=== PATIENT | female | born 1990 | race Caucasian/White ===

== ENCOUNTER 2016-08-25 23:25 | Emergency (ER) | payer SELFPAY ==
[~2016-08-25] VITALS: Ht 170.2 cm; Wt 82.0 kg
[~2016-08-25 23:25] MED LIST: BENTYL20 MG PO; CARAFATE100 MG/ML PO; NAPROSYN500 MG PO; PROTONIX40 MG PO; ZANTAC150 MG PO; ZOFRAN ODT4 MG PO; ZOFRAN4 MG PO
[2016-08-25 23:54] LABS: HEMATOCRIT 39.8 % (36.0-46.0); MCH 29.9 PG (29.0-34.0); MCHC 33.9 G/DL (30.0-36.0); MCV 88.1 FL (83-99); MEAN PLAT.VOLUME 12.5 uM^3 (9.5-12.4); PLATELET COUNT 175 K/uL (156-360); RBC DIS.WIDTH-CV 12.2 % (11.8-14.6); RBC DIS.WIDTH-SD 38.8 % (39-53); RED BLOOD COUNT 4.52 M/uL (3.80-5.20); WHITE BLOOD COUNT 8.8 K/uL (4.1-10.2)
[2016-08-26 00:02] LABS: CHLORIDE 109 mEq/L (99-109); SODIUM 142 mEq/L (136-147)
[2016-08-26 00:04] LABS: GLUCOSE 79 mg/dL (70-99)
[2016-08-26 00:06] LABS: ANION GAP 9 MEQ/L (2-14)
[2016-08-26 00:08] LABS: GFR ESTIMATE (CALCULATED) > 59 mL/min/
[2016-08-26 00:09] LABS: UREA NITROGEN (BUN) 8 mg/dL (9-23)
[2016-08-26] MEDS ORDERED: HYCODAN SYRUP480 ML PO (00:40)
[2016-08-26 01:37] LABS: INFLUENZA A VIRAL ANTIGEN NEGATIVE; INFLUENZA B VIRAL ANTIGEN NEGATIVE
[2016-08-26 02:03] VITALS: BP 114/68
== END 2016-08-26 02:04 | disposition home or self-care (01) ==
LOC: EME 23:25 → EXP 23:25
PROVIDERS: Emergency Medicine
DX: J06.9 Acute upper respiratory infection, unspecified (principal); S90.111A Contusion of right great toe without damage to nail, initial encounter; W22.8XXA Striking against or struck by other objects, initial encounter; Z79.3 Long term (current) use of hormonal contraceptives; Z88.1 Allergy status to other antibiotic agents
CPT/HCPCS: 71020; 73630; 80048; 85027; 87502; 87651 90; 99281; 99284

== ENCOUNTER 2016-08-31 19:36 | Emergency (ER) | payer SELFPAY ==
[~2016-08-31] VITALS: Ht 170.2 cm; Wt 82.1 kg
[~2016-08-31 19:36] MED LIST changes: +HYCODAN SYRUP480 ML PO
[2016-08-31] MEDS ORDERED: HYCODAN SYRUP480 ML PO (22:40)
[2016-08-31 22:48] VITALS: BP 96/78
== END 2016-08-31 22:48 | disposition home or self-care (01) ==
LOC: EXP 19:36 → EME 19:36 → EXP 22:48
DX: J06.9 Acute upper respiratory infection, unspecified (principal)
CPT/HCPCS: 71020; 99281; 99284

== ENCOUNTER 2016-09-11 17:46 | Emergency (ER) | payer SELFPAY ==
[~2016-09-11] VITALS: Ht 170.2 cm; Wt 82.2 kg
[2016-09-11 18:52] LABS: HEMATOCRIT 43.2 % (36.0-46.0); MCH 30.3 PG (29.0-34.0); MCHC 34.3 G/DL (30.0-36.0); MCV 88.3 FL (83-99); MEAN PLAT.VOLUME 12.5 uM^3 (9.5-12.4); PLATELET COUNT 210 K/uL (156-360); RBC DIS.WIDTH-CV 12.4 % (11.8-14.6); RBC DIS.WIDTH-SD 39.6 % (39-53); RED BLOOD COUNT 4.89 M/uL (3.80-5.20); WHITE BLOOD COUNT 9.3 K/uL (4.1-10.2)
[2016-09-11 19:10] LABS: CHLORIDE 106 mEq/L (99-109); POTASSIUM 4.4 mEq/L (3.7-5.4); SODIUM 141 mEq/L (136-147)
[2016-09-11 19:12] LABS: GLUCOSE 92 mg/dL (70-99)
[2016-09-11 19:13] LABS: ANION GAP 7 MEQ/L (2-14)
[2016-09-11 19:15] LABS: GFR ESTIMATE (CALCULATED) > 59 mL/min/
[2016-09-11 19:16] LABS: UREA NITROGEN (BUN) 10 mg/dL (9-23)
[2016-09-11 19:20] LABS: TROP-I INTERPRETATION NEGATIVE; TROPONIN-I < 0.01 ng/mL (0.0-0.30)
[2016-09-11 21:17] LABS: ADD MIUA? YES; BILIRUBIN NEGATIVE; BLOOD NEGATIVE; COLOR YELLOW ((YELLOW)); GLUCOSE (STRIP) NEGATIVE; KETONES NEGATIVE; LEUKOCYTES NEGATIVE; NITRITE NEGATIVE; PROTEIN (STRIP) NEGATIVE; SPECIFIC GRAVITY 1.013 (1.000-1.030); UROBILINOGEN 0.2 MG/DL (0.2-1.0)
[2016-09-11 21:18] LABS: UCUL ADDED? NO
[2016-09-11 21:19] LABS: BACTERIA NONE SEEN /HPF; CASTS NONE SEEN /LPF; CRYSTALS NONE SEEN; EPITHELIAL CELLS RARE /HPF; MUCUS NONE SEEN /LPF; RED BLOOD CELLS 0-5 /HPF (0-5); WHITE BLOOD CELLS 0-5 /HPF (0-5)
[2016-09-11 21:35] LABS: D-DIMER ELISA < 0.15 mg/L FEU (< 0.57)
[2016-09-11 22:32] VITALS: BP 111/74
== END 2016-09-11 22:33 | disposition home or self-care (01) ==
LOC: EME 17:46
PROVIDERS: Emergency Medicine
DX: M94.0 Chondrocostal junction syndrome [Tietze] (principal); Z87.891 Personal history of nicotine dependence
CPT/HCPCS: 71020; 80048; 81003; 84484; 85027; 85379; 93005; 99281; 99284

== ENCOUNTER 2016-10-07 23:16 | Emergency (ER) | payer SELFPAY ==
[~2016-10-07] VITALS: Ht 170.2 cm; Wt 83.4 kg
[2016-10-07] MEDS ORDERED: FLEXERIL10 MG PO (23:59)
[2016-10-07] MEDS ORDERED: MOBIC7.5 MG PO (23:59)
[2016-10-07] MEDS ORDERED: ULTRAM50 MG PO (23:59)
[2016-10-08 00:03] VITALS: BP 106/70
== END 2016-10-08 00:07 | disposition home or self-care (01) ==
LOC: EME 23:16 → EXP 23:16
DX: M54.2 Cervicalgia (principal); R51 Headache
CPT/HCPCS: 99281; 99284

== ENCOUNTER 2016-10-20 17:21 | Emergency (ER) | payer SELFPAY ==
[~2016-10-20] VITALS: Ht 170.2 cm; Wt 83.7 kg
[~2016-10-20 17:21] MED LIST changes: +FLEXERIL10 MG PO; +MOBIC7.5 MG PO; +ULTRAM50 MG PO
[2016-10-20] MEDS ORDERED: VOLTAREN75 MG PO (20:11)
[2016-10-20] MEDS ORDERED: MEDROL DOSEPAK4 MG PO (20:11)
[2016-10-20] MEDS ORDERED: ROBAXIN750 MG PO (20:11)
[2016-10-20 20:37] VITALS: BP 120/75
== END 2016-10-20 20:37 | disposition home or self-care (01) ==
LOC: EME 17:21
DX: G89.29 Other chronic pain (principal); M25.512 Pain in left shoulder; M79.602 Pain in left arm; R20.0 Anesthesia of skin
CPT/HCPCS: 72040; 73030; 99281; 99283

== ENCOUNTER 2016-11-25 13:35 | Emergency (ER) | payer OTHER ==
[~2016-11-25] VITALS: Ht 170.2 cm; Wt 81.7 kg
[~2016-11-25 13:35] MED LIST changes: +MEDROL DOSEPAK4 MG PO; +ROBAXIN750 MG PO; +VOLTAREN75 MG PO
[2016-11-25 14:16] LABS: ADD MIUA? YES; BILIRUBIN NEGATIVE; BLOOD NEGATIVE; COLOR YELLOW ((YELLOW)); GLUCOSE (STRIP) NEGATIVE; KETONES NEGATIVE; LEUKOCYTES TRACE; NITRITE NEGATIVE; PROTEIN (STRIP) 30; UROBILINOGEN 0.2 MG/DL (0.2-1.0)
[2016-11-25 14:19] LABS: BACTERIA NONE SEEN /HPF; EPITHELIAL CELLS 1+ /HPF; HYALINE CASTS 0-5 /LPF; MUCUS TRACE /LPF; RED BLOOD CELLS 0-5 /HPF (0-5); WHITE BLOOD CELLS 0-5 /HPF (0-5)
[2016-11-25 14:33] LABS: CHLORIDE 106 mEq/L (99-109); POTASSIUM 3.8 mEq/L (3.7-5.4); SODIUM 138 mEq/L (136-147)
[2016-11-25 14:35] LABS: GLUCOSE 95 mg/dL (70-99)
[2016-11-25 14:37] LABS: ANION GAP 9 MEQ/L (2-14)
[2016-11-25 14:39] LABS: GFR ESTIMATE (CALCULATED) > 59 mL/min/
[2016-11-25 14:40] LABS: UREA NITROGEN (BUN) 10 mg/dL (9-23)
[2016-11-25 14:47] LABS: QUANTITATIVE HCG < 4.0 MIU/ML
[2016-11-25] MEDS ORDERED: ZOFRAN ODT8 MG PO (14:53)
[2016-11-25 14:58] VITALS: BP 110/72
== END 2016-11-25 15:19 | disposition home or self-care (01) ==
LOC: EME 13:35
PROVIDERS: Physician Assistant
DX: A08.4 Viral intestinal infection, unspecified (principal); R51 Headache; R42 Dizziness and giddiness
CPT/HCPCS: 80048; 81003; 84702; 99281; 99284

== ENCOUNTER 2016-12-07 20:52 | Emergency (ER) | payer OTHER ==
[~2016-12-07] VITALS: Ht 170.2 cm; Wt 81.5 kg
[~2016-12-07 20:52] MED LIST changes: +ZOFRAN ODT8 MG PO
[2016-12-07 21:40] LABS: HEMATOCRIT 44.5 % (36.0-46.0); MCH 29.1 PG (29.0-34.0); MCHC 33.3 G/DL (30.0-36.0); MCV 87.6 FL (83-99); RBC DIS.WIDTH-CV 11.9 % (11.8-14.6); RED BLOOD COUNT 5.08 M/uL (3.80-5.20); WHITE BLOOD COUNT 9.1 K/uL (4.1-10.2)
[2016-12-07 21:51] LABS: CHLORIDE 107 mEq/L (99-109); POTASSIUM 4.1 mEq/L (3.7-5.4); SODIUM 140 mEq/L (136-147)
[2016-12-07 21:54] LABS: GLUCOSE 95 mg/dL (70-99)
[2016-12-07 21:55] LABS: ANION GAP 10 MEQ/L (2-14); TOTAL BILIRUBIN 0.4 mg/dL (0.0-1.0)
[2016-12-07 21:57] LABS: ALKALINE PHOSPHATASE 65 IU/L (3-129); GFR ESTIMATE (CALCULATED) > 59 mL/min/
[2016-12-07 21:58] LABS: UREA NITROGEN (BUN) 11 mg/dL (9-23)
[2016-12-07 22:01] LABS: LIPASE 20 U/L (1.0-51.0)
[2016-12-07 22:05] LABS: MEAN PLAT.VOLUME 12.5 uM^3 (9.5-12.4); PLATELET COUNT 211 K/uL (156-360)
[2016-12-07 22:06] LABS: QUANTITATIVE HCG < 4.0 MIU/ML
[2016-12-07 22:16] LABS: ADD MIUA? YES; BILIRUBIN NEGATIVE; BLOOD SMALL; COLOR YELLOW ((YELLOW)); GLUCOSE (STRIP) NEGATIVE; KETONES NEGATIVE; LEUKOCYTES SMALL; NITRITE NEGATIVE; PROTEIN (STRIP) NEGATIVE; SPECIFIC GRAVITY 1.021 (1.000-1.030); UROBILINOGEN 0.2 MG/DL (0.2-1.0)
[2016-12-07 22:18] LABS: BACTERIA RARE /HPF; EPITHELIAL CELLS RARE /HPF; MUCUS TRACE /LPF; RED BLOOD CELLS 0-5 /HPF (0-5); WHITE BLOOD CELLS 0-5 /HPF (0-5)
[2016-12-07 22:46] VITALS: BP 116/56
[2016-12-07] MEDS ORDERED: VISTARIL50 MG PO (23:15)
[2016-12-07] MEDS ORDERED: FIORICET 50-301 EACH PO (23:51)
== END 2016-12-08 00:15 | disposition home or self-care (01) ==
LOC: EME 20:52 → RME 20:52
PROVIDERS: Physician Assistant
DX: R53.83 Other fatigue (principal); G47.00 Insomnia, unspecified; R45.86 Emotional lability; G44.209 Tension-type headache, unspecified, not intractable; R45.84 Anhedonia; Z87.891 Personal history of nicotine dependence
CPT/HCPCS: 80053; 81003; 83690; 84439; 84443; 84702; 85027; 99281; 99284; J1885; Q0169; Q0177

== ENCOUNTER 2016-12-19 22:48 | Emergency (ER) | payer OTHER ==
[~2016-12-19] VITALS: Ht 170.2 cm; Wt 81.4 kg
[~2016-12-19 22:48] MED LIST changes: +FIORICET 50-301 EACH PO; +VISTARIL50 MG PO
[2016-12-19 23:54] LABS: HEMATOCRIT 42.6 % (36.0-46.0); MCH 29.5 PG (29.0-34.0); MCHC 33.6 G/DL (30.0-36.0); RBC DIS.WIDTH-CV 12.1 % (11.8-14.6); RED BLOOD COUNT 4.84 M/uL (3.80-5.20); WHITE BLOOD COUNT 8.7 K/uL (4.1-10.2)
[2016-12-19 23:54] LABS: ADD MIUA? NO; BILIRUBIN NEGATIVE; BLOOD NEGATIVE; COLOR YELLOW ((YELLOW)); GLUCOSE (STRIP) NEGATIVE; KETONES NEGATIVE; LEUKOCYTES NEGATIVE; NITRITE NEGATIVE; PROTEIN (STRIP) NEGATIVE; SPECIFIC GRAVITY 1.018 (1.000-1.030); UCUL ADDED? NO; UROBILINOGEN 0.2 MG/DL (0.2-1.0)
[2016-12-19 23:59] LABS: CHLORIDE 108 mEq/L (99-109); POTASSIUM 3.9 mEq/L (3.7-5.4); SODIUM 141 mEq/L (136-147)
[2016-12-20 00:01] LABS: GLUCOSE 88 mg/dL (70-99)
[2016-12-20 00:02] LABS: ANION GAP 9 MEQ/L (2-14)
[2016-12-20 00:03] LABS: TOTAL BILIRUBIN 0.3 mg/dL (0.0-1.0)
[2016-12-20 00:05] LABS: ALKALINE PHOSPHATASE 72 IU/L (3-129); GFR ESTIMATE (CALCULATED) > 59 mL/min/
[2016-12-20 00:06] LABS: UREA NITROGEN (BUN) 9 mg/dL (9-23)
[2016-12-20 00:21] LABS: QUANTITATIVE HCG < 4.0 MIU/ML
[2016-12-20] MEDS ORDERED: PERCOCET 5/31 TABLET PO (01:26)
[2016-12-20] MEDS ORDERED: NAPROSYN500 MG PO (01:26)
[2016-12-20 01:36] VITALS: BP 130/78
[2016-12-20 01:44] LABS: MEAN PLAT.VOLUME 13.2 uM^3 (9.5-12.4); PLAT.SUFFICIENCY ADEQUATE; PLATELET COUNT 184 K/uL (156-360)
== END 2016-12-20 01:36 | disposition home or self-care (01) ==
LOC: EME 22:48 → EXP 22:48
PROVIDERS: Physician Assistant
DX: R10.2 Pelvic and perineal pain (principal); T83.32XA Displacement of intrauterine contraceptive device, initial encounter; N93.9 Abnormal uterine and vaginal bleeding, unspecified; Z87.891 Personal history of nicotine dependence
CPT/HCPCS: 76856; 80053; 81003; 84702; 85027; 99281; 99284

== ENCOUNTER 2016-12-26 20:58 | Emergency (ER) | payer OTHER ==
[~2016-12-26] VITALS: Ht 170.2 cm; Wt 80.1 kg
[~2016-12-26 20:58] MED LIST changes: +PERCOCET 5/31 TABLET PO
[2016-12-26] MEDS ORDERED: FIORICET 50-301 EACH PO (23:17)
[2016-12-26] MEDS ORDERED: ZOFRAN ODT4 MG PO (23:17)
[2016-12-26 23:40] VITALS: BP 119/62
== END 2016-12-26 23:40 | disposition home or self-care (01) ==
LOC: EME 20:58
DX: R51 Headache (principal); Z87.891 Personal history of nicotine dependence
CPT/HCPCS: 99281; 99284; J1200; J1885; J2765; J7030

== ENCOUNTER 2017-01-09 00:05 | Emergency (ER) | payer OTHER ==
[~2017-01-09] VITALS: Ht 170.2 cm; Wt 81.1 kg
[2017-01-09 02:38] LABS: CHLORIDE 106 mEq/L (99-109); POTASSIUM 3.7 mEq/L (3.7-5.4); SODIUM 138 mEq/L (136-147)
[2017-01-09 02:40] LABS: GLUCOSE 94 mg/dL (70-99)
[2017-01-09 02:41] LABS: ANION GAP 8 MEQ/L (2-14)
[2017-01-09 02:44] LABS: GFR ESTIMATE (CALCULATED) > 59 mL/min/
[2017-01-09] MEDS ORDERED: TRAMADOL HCL50 MG PO (02:44)
[2017-01-09 02:45] LABS: UREA NITROGEN (BUN) 10 mg/dL (9-23)
[2017-01-09 02:46] LABS: CREATINE KINASE 92 IU/L (1-294); TOTAL CK 92 IU/L (1-294)
[2017-01-09 02:56] LABS: CK-MB 1.3 ng/mL (0.0-4.9)
[2017-01-09 03:56] VITALS: BP 93/63
== END 2017-01-09 03:58 | disposition home or self-care (01) ==
LOC: EME 00:05
PROVIDERS: Emergency Medicine
DX: S80.11XA Contusion of right lower leg, initial encounter (principal); S96.911A Strain of unspecified muscle and tendon at ankle and foot level, right foot, initial encounter; X58.XXXA Exposure to other specified factors, initial encounter; F17.200 Nicotine dependence, unspecified, uncomplicated
CPT/HCPCS: 73610; 80048; 82550; 82553; 99281; 99284

== ENCOUNTER 2017-02-16 23:54 | Emergency (ER) | payer SELFPAY ==
[~2017-02-16] VITALS: Ht 170.2 cm; Wt 81.3 kg
[~2017-02-16 23:54] MED LIST changes: +TRAMADOL HCL50 MG PO
[2017-02-17] MEDS ORDERED: VISTARIL25 MG PO (00:59)
[2017-02-17 01:20] VITALS: BP 136/87
[2017-02-17] MEDS ORDERED: ZOFRAN ODT4 MG PO (16:08)
[2017-02-17] MEDS ORDERED: TRAZODONE HCL50 MG PO (16:08)
== END 2017-02-17 01:20 | disposition home or self-care (01) ==
LOC: EME 23:54
DX: F32.9 Major depressive disorder, single episode, unspecified (principal); L50.9 Urticaria, unspecified
CPT/HCPCS: 99281; 99284; Q0177

== ENCOUNTER 2017-02-17 13:04 | Emergency (ER) | payer SELFPAY ==
[~2017-02-17] VITALS: Ht 170.2 cm; Wt 78.2 kg
[~2017-02-17 13:04] MED LIST changes: +VISTARIL25 MG PO
[2017-02-17 14:19] LABS: HEMATOCRIT 39.6 % (36.0-46.0); MCH 29.9 PG (29.0-34.0); MCHC 33.8 G/DL (30.0-36.0); MCV 88.4 FL (83-99); RED BLOOD COUNT 4.48 M/uL (3.80-5.20); WHITE BLOOD COUNT 9.2 K/uL (4.1-10.2)
[2017-02-17 14:35] LABS: ADD MIUA? YES; BILIRUBIN NEGATIVE; BLOOD NEGATIVE; COLOR STRAW ((YELLOW)); GLUCOSE (STRIP) NEGATIVE; KETONES NEGATIVE; LEUKOCYTES TRACE; NITRITE NEGATIVE; PROTEIN (STRIP) NEGATIVE; SPECIFIC GRAVITY 1.008 (1.000-1.030); UROBILINOGEN 0.2 MG/DL (0.2-1.0)
[2017-02-17 14:37] LABS: CHLORIDE 101 mEq/L (99-109); POTASSIUM 4.6 mEq/L (3.7-5.4); SODIUM 135 mEq/L (136-147)
[2017-02-17 14:39] LABS: GLUCOSE 110 mg/dL (70-99)
[2017-02-17 14:39] LABS: BACTERIA RARE /HPF; EPITHELIAL CELLS RARE /HPF; MUCUS TRACE /LPF; RED BLOOD CELLS 0-5 /HPF (0-5); WHITE BLOOD CELLS 0-5 /HPF (0-5)
[2017-02-17 14:40] LABS: ANION GAP 8 MEQ/L (2-14)
[2017-02-17 14:41] LABS: TOTAL BILIRUBIN 0.4 mg/dL (0.0-1.0)
[2017-02-17 14:42] LABS: ALKALINE PHOSPHATASE 62 IU/L (3-129)
[2017-02-17 14:43] LABS: GFR ESTIMATE (CALCULATED) > 59 mL/min/
[2017-02-17 14:44] LABS: UREA NITROGEN (BUN) 7 mg/dL (9-23)
[2017-02-17 14:46] LABS: LIPASE 12 U/L (1.0-51.0)
[2017-02-17 14:52] LABS: QUANTITATIVE HCG < 4.0 MIU/ML
[2017-02-17 15:12] LABS: HEMATOLOGY COMMENT 1 SN; MEAN PLAT.VOLUME 12.3 uM^3 (9.5-12.4); PLAT.SUFFICIENCY ADEQUATE; PLATELET COUNT 177 K/uL (156-360)
[2017-02-17] MEDS ORDERED: ZOFRAN ODT4 MG PO (16:08)
[2017-02-17] MEDS ORDERED: TRAZODONE HCL50 MG PO (16:08)
[2017-02-17 16:19] VITALS: BP 114/70
== END 2017-02-17 16:21 | disposition home or self-care (01) ==
LOC: EME 13:04
PROVIDERS: Nurse Practitioner Family
DX: R51 Headache (principal); R11.2 Nausea with vomiting, unspecified; L50.9 Urticaria, unspecified; F32.9 Major depressive disorder, single episode, unspecified; R42 Dizziness and giddiness; G47.00 Insomnia, unspecified; R73.9 Hyperglycemia, unspecified
CPT/HCPCS: 80053; 81003; 83690; 84702; 85027; 90839; 99281; 99284; J1100; J1200; J1885; J2765; J7030

== ENCOUNTER 2017-04-26 19:54 | Emergency (ER) | payer OTHER ==
[~2017-04-26] VITALS: Ht 170.2 cm; Wt 77.2 kg
[~2017-04-26 19:54] MED LIST changes: +TRAZODONE HCL50 MG PO
[2017-04-26] MEDS ORDERED: MEDROL DOSEPAK4 MG PO (21:55)
[2017-04-26] MEDS ORDERED: FLEXERIL10 MG PO (21:55)
[2017-04-26] MEDS ORDERED: NAPROSYN500 MG PO (21:55)
[2017-04-26 22:07] VITALS: BP 94/54
== END 2017-04-26 22:08 | disposition home or self-care (01) ==
LOC: EME 19:54
DX: M54.9 Dorsalgia, unspecified (principal); M79.604 Pain in right leg; M79.605 Pain in left leg
CPT/HCPCS: 99281; 99284; J1100

== ENCOUNTER 2017-05-13 13:21 | Emergency (ER) | payer OTHER ==
[~2017-05-13] VITALS: Ht 170.2 cm; Wt 78.9 kg
[2017-05-13 13:55] LABS: HEMATOCRIT 42.1 % (36.0-46.0); MCH 30.3 PG (29.0-34.0); MCHC 33.3 G/DL (30.0-36.0); MCV 91.1 FL (83-99); MEAN PLAT.VOLUME 11.7 uM^3 (9.5-12.4); PLATELET COUNT 193 K/uL (156-360); RBC DIS.WIDTH-CV 13.1 % (11.8-14.6); RBC DIS.WIDTH-SD 43.5 % (39-53); RED BLOOD COUNT 4.62 M/uL (3.80-5.20); WHITE BLOOD COUNT 7.5 K/uL (4.1-10.2)
[2017-05-13 14:08] LABS: CHLORIDE 108 mEq/L (99-109); POTASSIUM 3.9 mEq/L (3.7-5.4); SODIUM 140 mEq/L (136-147)
[2017-05-13 14:10] LABS: GLUCOSE 106 mg/dL (70-99)
[2017-05-13 14:11] LABS: ANION GAP 8 MEQ/L (2-14)
[2017-05-13 14:12] LABS: TOTAL BILIRUBIN 0.6 mg/dL (0.0-1.0)
[2017-05-13 14:13] LABS: ALKALINE PHOSPHATASE 68 IU/L (3-129)
[2017-05-13 14:14] LABS: GFR ESTIMATE (CALCULATED) > 59 mL/min/
[2017-05-13 14:15] LABS: UREA NITROGEN (BUN) 8 mg/dL (9-23)
[2017-05-13 14:23] LABS: QUANTITATIVE HCG < 4.0 MIU/ML
[2017-05-13 15:26] LABS: ADD MIUA? YES; BILIRUBIN NEGATIVE; BLOOD NEGATIVE; COLOR YELLOW ((YELLOW)); GLUCOSE (STRIP) NEGATIVE; KETONES NEGATIVE; LEUKOCYTES TRACE; NITRITE NEGATIVE; PROTEIN (STRIP) NEGATIVE; SPECIFIC GRAVITY 1.015 (1.000-1.030); UROBILINOGEN 0.2 MG/DL (0.2-1.0)
[2017-05-13 15:30] LABS: BACTERIA RARE /HPF; EPITHELIAL CELLS 1+ /HPF; MUCUS TRACE /LPF; RED BLOOD CELLS 0-5 /HPF (0-5); UCUL ADDED? NO; WHITE BLOOD CELLS 0-5 /HPF (0-5)
[2017-05-13 17:10] LABS: LIPASE 17 U/L (1.0-51.0)
[2017-05-13] MEDS ORDERED: MIRALAX17 GM PO (17:20)
[2017-05-13 17:33] VITALS: BP 99/68
== END 2017-05-13 17:37 | disposition home or self-care (01) ==
LOC: EME 13:21
DX: R10.84 Generalized abdominal pain (principal); K59.00 Constipation, unspecified; F32.9 Major depressive disorder, single episode, unspecified; Z88.6 Allergy status to analgesic agent
CPT/HCPCS: 74177; 80053; 81003; 83690; 84702; 85027; 99281; 99285; J1885; J2405; J7030

== ENCOUNTER 2017-06-02 10:18 | Emergency (ER) | payer OTHER ==
[~2017-06-02] VITALS: Ht 170.2 cm; Wt 79.8 kg
[~2017-06-02 10:18] MED LIST changes: +MIRALAX17 GM PO
[2017-06-02 11:05] LABS: HEMATOCRIT 42.2 % (36.0-46.0); MCH 30.3 PG (29.0-34.0); MCHC 33.4 G/DL (30.0-36.0); MCV 90.8 FL (83-99); RBC DIS.WIDTH-CV 12.4 % (11.8-14.6); RBC DIS.WIDTH-SD 40.9 % (39-53); RED BLOOD COUNT 4.65 M/uL (3.80-5.20); WHITE BLOOD COUNT 7.6 K/uL (4.1-10.2)
[2017-06-02 11:12] LABS: ADD MIUA? YES; BILIRUBIN NEGATIVE; BLOOD SMALL; COLOR YELLOW ((YELLOW)); GLUCOSE (STRIP) NEGATIVE; KETONES NEGATIVE; LEUKOCYTES TRACE; NITRITE NEGATIVE; PROTEIN (STRIP) NEGATIVE; SPECIFIC GRAVITY 1.015 (1.000-1.030); UROBILINOGEN 0.2 MG/DL (0.2-1.0)
[2017-06-02 11:14] LABS: CHLORIDE 106 mEq/L (99-109); POTASSIUM 4.2 mEq/L (3.7-5.4); SODIUM 138 mEq/L (136-147)
[2017-06-02 11:15] LABS: BACTERIA NONE SEEN /HPF; EPITHELIAL CELLS 1+ /HPF; MUCUS TRACE /LPF; RED BLOOD CELLS 0-5 /HPF (0-5); WHITE BLOOD CELLS 0-5 /HPF (0-5)
[2017-06-02 11:16] LABS: GLUCOSE 90 mg/dL (70-99)
[2017-06-02 11:17] LABS: ANION GAP 8 MEQ/L (2-14)
[2017-06-02 11:18] LABS: TOTAL BILIRUBIN 0.3 mg/dL (0.0-1.0)
[2017-06-02 11:19] LABS: ALKALINE PHOSPHATASE 72 IU/L (3-129)
[2017-06-02 11:20] LABS: GFR ESTIMATE (CALCULATED) > 59 mL/min/
[2017-06-02 11:21] LABS: UREA NITROGEN (BUN) 9 mg/dL (9-23)
[2017-06-02 11:33] LABS: QUANTITATIVE HCG < 4.0 MIU/ML
[2017-06-02 11:55] LABS: MEAN PLAT.VOLUME 12.4 uM^3 (9.5-12.4); PLAT.SUFFICIENCY ADEQUATE; PLATELET COUNT 185 K/uL (156-360)
[2017-06-02] MEDS ORDERED: BACTRIM,SEPT1 TABLET PO (12:11)
[2017-06-02] MEDS ORDERED: PYRIDIUM100 MG PO (12:11)
[2017-06-02 12:21] VITALS: BP 111/70
[2017-06-03] MEDS ORDERED: IMITREX50 MG PO (04:55)
[2017-06-03] MEDS ORDERED: REGLAN10 MG PO (04:55)
== END 2017-06-02 12:22 | disposition home or self-care (01) ==
LOC: EME 10:18
PROVIDERS: Nurse Practitioner Family
DX: N39.0 Urinary tract infection, site not specified (principal); Z87.440 Personal history of urinary (tract) infections
CPT/HCPCS: 74177; 80053; 81003; 84702; 85027; 99281; 99284; J7030

== ENCOUNTER 2017-06-03 04:18 | Emergency (ER) | payer OTHER ==
[~2017-06-03] VITALS: Ht 170.2 cm; Wt 79.8 kg
[~2017-06-03 04:18] MED LIST changes: +BACTRIM,SEPT1 TABLET PO; +PYRIDIUM100 MG PO
[2017-06-03] MEDS ORDERED: IMITREX50 MG PO (04:55)
[2017-06-03] MEDS ORDERED: REGLAN10 MG PO (04:55)
[2017-06-03 06:23] VITALS: BP 99/66
== END 2017-06-03 06:50 | disposition home or self-care (01) ==
LOC: EME 04:18
DX: G43.909 Migraine, unspecified, not intractable, without status migrainosus (principal)
CPT/HCPCS: 99281; 99284

== ENCOUNTER → 2017-06-28 | Emergency (ER) | payer SELFPAY ==
[~2017-06-28] VITALS: Ht 170.2 cm; Wt 80.7 kg
[~2017-06-28] MED LIST changes: +CIPRO500 MG PO; +FLAGYL500 MG PO; +IMITREX50 MG PO; +MACROBID100 MG PO; +PYRIDIUM200 MG PO; +REGLAN10 MG PO
[2017-06-28 17:40] LABS: HEMATOCRIT 39.4 % (36.0-46.0); MCH 30.6 PG (29.0-34.0); MCHC 34.3 G/DL (30.0-36.0); MCV 89.3 FL (83-99); PLATELET COUNT 224 K/uL (156-360); RBC DIS.WIDTH-CV 11.9 % (11.8-14.6); RBC DIS.WIDTH-SD 38.7 % (39-53); RED BLOOD COUNT 4.41 M/uL (3.80-5.20); WHITE BLOOD COUNT 6.8 K/uL (4.1-10.2)
[2017-06-28 17:48] LABS: CHLORIDE 107 mEq/L (99-109); POTASSIUM 3.7 mEq/L (3.7-5.4); SODIUM 139 mEq/L (136-147)
[2017-06-28 17:50] LABS: GLUCOSE 95 mg/dL (70-99)
[2017-06-28 17:52] LABS: ANION GAP 8 MEQ/L (2-14); TOTAL BILIRUBIN 0.4 mg/dL (0.0-1.0)
[2017-06-28 17:54] LABS: ALKALINE PHOSPHATASE 74 IU/L (3-129); GFR ESTIMATE (CALCULATED) > 59 mL/min/
[2017-06-28 17:55] LABS: UREA NITROGEN (BUN) 9 mg/dL (9-23)
[2017-06-28 18:03] LABS: QUANTITATIVE HCG < 4.0 MIU/ML
[2017-06-28 19:55] LABS: ADD MIUA? YES; BILIRUBIN NEGATIVE; BLOOD NEGATIVE; COLOR YELLOW ((YELLOW)); GLUCOSE (STRIP) NEGATIVE; KETONES NEGATIVE; LEUKOCYTES LARGE; NITRITE NEGATIVE; PROTEIN (STRIP) 30; UROBILINOGEN 0.2 MG/DL (0.2-1.0)
[2017-06-28 20:16] LABS: EPITHELIAL CELLS 1+ /HPF; RED BLOOD CELLS RARE /HPF (0-5); WHITE BLOOD CELLS TNTC /HPF (0-5)
[2017-06-28 20:17] LABS: UCUL ADDED? YES
[2017-06-28 20:18] LABS: BACTERIA 1+ /HPF; CASTS PRESENT /LPF; HYALINE CASTS RARE /LPF; MUCUS 1+ /LPF
[2017-06-28 21:21] VITALS: BP 115/61
[2017-07-01 13:01] LABS: CHLAMYDIA TRACHOMATIS NEGATIVE; NEISSERIA GONORRHOEAE POSITIVE
== END | disposition home or self-care (01) ==
LOC: EME 16:27
PROVIDERS: Nurse Practitioner Family
DX: N39.0 Urinary tract infection, site not specified (principal); N89.8 Other specified noninflammatory disorders of vagina; Z11.3 Encounter for screening for infections with a predominantly sexual mode of transmission
CPT/HCPCS: 80053; 81003; 84702; 85027; 87086; 87491; 87591; 99281; 99283

== ENCOUNTER 2017-07-08 16:37 | Emergency (ER) | payer OTHER ==
[~2017-07-08] VITALS: Ht 170.2 cm; Wt 81.9 kg
[2017-07-08 19:12] LABS: ADD MIUA? YES; BILIRUBIN NEGATIVE; BLOOD NEGATIVE; COLOR YELLOW ((YELLOW)); GLUCOSE (STRIP) NEGATIVE; KETONES NEGATIVE; LEUKOCYTES LARGE; NITRITE NEGATIVE; PROTEIN (STRIP) NEGATIVE; SPECIFIC GRAVITY 1.025 (1.000-1.030); UROBILINOGEN 0.2 MG/DL (0.2-1.0)
[2017-07-08 19:32] LABS: AMORPHOUS PHOSPHATE CRYSTALS 2+; BACTERIA RARE /HPF; CASTS NONE SEEN /LPF; CRYSTALS PRESENT; EPITHELIAL CELLS NONE SEEN /HPF; MUCUS NONE SEEN /LPF; RED BLOOD CELLS 0-5 /HPF (0-5); UCUL ADDED? YES; WHITE BLOOD CELLS 15-20 /HPF (0-5)
[2017-07-08 20:41] LABS: INTERNAL CONTROL VALID? YES
[2017-07-08 20:54] VITALS: BP 118/82
== END 2017-07-08 20:55 | disposition home or self-care (01) ==
LOC: EME 16:37
PROVIDERS: Physician Assistant
DX: A54.9 Gonococcal infection, unspecified (principal); N93.9 Abnormal uterine and vaginal bleeding, unspecified; R11.2 Nausea with vomiting, unspecified; R10.30 Lower abdominal pain, unspecified
CPT/HCPCS: 81003; 84703; 87086; 99281; 99283

== ENCOUNTER 2017-09-10 10:46 | Emergency (ER) | payer OTHER ==
[~2017-09-10] VITALS: Ht 170.2 cm; Wt 83.5 kg
[2017-09-10 11:08] LABS: HEMATOCRIT 42.2 % (36.0-46.0); HEMOGLOBIN 14.4 G/DL (11.9-15.5); MCH 29.8 PG (29.0-34.0); MCHC 34.1 G/DL (30.0-36.0); MCV 87.2 FL (83-99); RBC DIS.WIDTH-SD 38.5 % (39-53); RED BLOOD COUNT 4.84 M/uL (3.80-5.20); WHITE BLOOD COUNT 8.8 K/uL (4.1-10.2)
[2017-09-10 11:19] LABS: ALBUMIN 4.5 g/dL (3.2-4.8); CHLORIDE 105 mEq/L (99-109); POTASSIUM 3.8 mEq/L (3.7-5.4); SODIUM 140 mEq/L (136-147)
[2017-09-10 11:21] LABS: GLUCOSE 100 mg/dL (70-99)
[2017-09-10 11:22] LABS: TOTAL PROTEIN 7.8 g/dL (6.4-8.3)
[2017-09-10 11:23] LABS: TOTAL BILIRUBIN 0.4 mg/dL (0.0-1.0)
[2017-09-10 11:25] LABS: ALKALINE PHOSPHATASE 86 IU/L (3-129); CREATININE 0.7 mg/dL (0.6-1.3); GFR ESTIMATE (CALCULATED) > 59 mL/min/
[2017-09-10 11:26] LABS: UREA NITROGEN (BUN) 11 mg/dL (9-23)
[2017-09-10 11:27] LABS: AST (GOT) 21 IU/L (2-34)
[2017-09-10 11:28] LABS: ALT (GPT) 22 IU/L (3-49)
[2017-09-10 11:34] LABS: QUANTITATIVE HCG < 4.0 MIU/ML
[2017-09-10 12:52] LABS: PLAT.SUFFICIENCY ADEQUATE; PLATELET COUNT 250 K/uL (156-360)
[2017-09-10 13:26] LABS: APPEARANCE SL.HAZY ((CLEAR)); BILIRUBIN NEGATIVE; BLOOD NEGATIVE; COLOR YELLOW ((YELLOW)); GLUCOSE (STRIP) NEGATIVE; KETONES NEGATIVE; LEUKOCYTES NEGATIVE; NITRITE NEGATIVE; PROTEIN (STRIP) 30; SPECIFIC GRAVITY 1.028 (1.000-1.030); UROBILINOGEN 0.2 MG/DL (0.2-1.0)
[2017-09-10 13:29] LABS: BACTERIA NONE SEEN /HPF; EPITHELIAL CELLS RARE /HPF; MUCUS TRACE /LPF; RED BLOOD CELLS 0-5 /HPF (0-5); UCUL ADDED? NO; WHITE BLOOD CELLS 0-5 /HPF (0-5)
[2017-09-10] MEDS ORDERED: AMOXICILLIN500 MG PO (13:57)
[2017-09-10] MEDS ORDERED: MOTRIN600 MG PO (13:57)
[2017-09-10 14:43] VITALS: BP 108/71
== END 2017-09-10 14:10 | disposition home or self-care (01) ==
LOC: EME 10:46
DX: J02.0 Streptococcal pharyngitis (principal); D64.9 Anemia, unspecified; F32.9 Major depressive disorder, single episode, unspecified; Z88.5 Allergy status to narcotic agent
CPT/HCPCS: 80053; 81003; 84702; 85027; 87502; 87651 90; 99281; 99285; J1885; J2765; J7030

== ENCOUNTER 2017-09-15 19:32 | Emergency (ER) | payer OTHER ==
[~2017-09-15] VITALS: Ht 170.2 cm; Wt 82.2 kg
[~2017-09-15 19:32] MED LIST changes: +AMOXICILLIN500 MG PO; +MOTRIN600 MG PO
[2017-09-15] MEDS ORDERED: PATANOL OP100 DROP/5 LEFT EYE (20:52)
[2017-09-15] MEDS ORDERED: PREDNISONE10 M1 PO (20:53)
[2017-09-15 21:20] VITALS: BP 111/73
== END 2017-09-15 21:21 | disposition home or self-care (01) ==
LOC: EME 19:32
DX: H10.12 Acute atopic conjunctivitis, left eye (principal); F32.9 Major depressive disorder, single episode, unspecified; Z88.5 Allergy status to narcotic agent; Z88.6 Allergy status to analgesic agent; Z88.1 Allergy status to other antibiotic agents
CPT/HCPCS: 99281; 99284

== ENCOUNTER 2017-11-02 16:51 | Emergency (ER) | payer OTHER ==
[~2017-11-02] VITALS: Ht 170.2 cm; Wt 83.8 kg
[~2017-11-02 16:51] MED LIST changes: +PATANOL OP100 DROP/5 LEFT EYE; +PREDNISONE10 M1 PO
[2017-11-02 18:40] VITALS: BP 111/71
[2017-11-03] MEDS ORDERED: ZOFRAN ODT4 MG PO (22:21)
[2017-11-03] MEDS ORDERED: BENTYL10 MG PO (22:23)
== END 2017-11-02 18:42 | disposition home or self-care (01) ==
LOC: EME 16:51
DX: R11.0 Nausea (principal); F32.9 Major depressive disorder, single episode, unspecified; G43.909 Migraine, unspecified, not intractable, without status migrainosus; D64.9 Anemia, unspecified; Z88.1 Allergy status to other antibiotic agents; Z88.6 Allergy status to analgesic agent; Z88.5 Allergy status to narcotic agent
CPT/HCPCS: 84702; 87502; 99281; 99283

== ENCOUNTER 2017-11-03 19:19 | Emergency (ER) | payer OTHER ==
[~2017-11-03] VITALS: Ht 170.2 cm; Wt 85.3 kg
[2017-11-03 19:40] LABS: HEMOGLOBIN 12.8 G/DL (11.9-15.5); MCH 29.1 PG (29.0-34.0); MCHC 33.7 G/DL (30.0-36.0); MCV 86.4 FL (83-99); RBC DIS.WIDTH-CV 12.3 % (11.8-14.6); RBC DIS.WIDTH-SD 38.9 % (39-53); WHITE BLOOD COUNT 10.4 K/uL (4.1-10.2)
[2017-11-03 19:51] LABS: ALBUMIN 4.2 g/dL (3.2-4.8)
[2017-11-03 19:52] LABS: CHLORIDE 107 mEq/L (99-109); POTASSIUM 3.9 mEq/L (3.7-5.4); SODIUM 139 mEq/L (136-147)
[2017-11-03 19:54] LABS: GLUCOSE 106 mg/dL (70-99); TOTAL PROTEIN 7.1 g/dL (6.4-8.3)
[2017-11-03 19:56] LABS: TOTAL BILIRUBIN 0.3 mg/dL (0.0-1.0)
[2017-11-03 19:57] LABS: ALKALINE PHOSPHATASE 71 IU/L (3-129)
[2017-11-03 19:58] LABS: CREATININE 0.7 mg/dL (0.6-1.3); GFR ESTIMATE (CALCULATED) > 59 mL/min/
[2017-11-03 19:59] LABS: AST (GOT) 18 IU/L (2-34); UREA NITROGEN (BUN) 13 mg/dL (9-23)
[2017-11-03 20:00] LABS: ALT (GPT) 14 IU/L (3-49)
[2017-11-03 20:01] LABS: QUANTITATIVE HCG < 4.0 MIU/ML
[2017-11-03 20:16] LABS: PLAT.SUFFICIENCY ADEQUATE; PLATELET COUNT 212 K/uL (156-360)
[2017-11-03 20:20] LABS: APPEARANCE TURBID ((CLEAR)); BILIRUBIN NEGATIVE; BLOOD NEGATIVE; COLOR AMBER ((YELLOW)); GLUCOSE (STRIP) NEGATIVE; KETONES 5; LEUKOCYTES NEGATIVE; NITRITE NEGATIVE; PROTEIN (STRIP) 30; SPECIFIC GRAVITY 1.036 (1.000-1.030)
[2017-11-03 20:35] LABS: BACTERIA 4+ /HPF; EPITHELIAL CELLS 1+ /HPF; MUCUS NONE SEEN /LPF; RED BLOOD CELLS 0-5 /HPF (0-5); UCUL ADDED? YES; WHITE BLOOD CELLS 0-5 /HPF (0-5)
[2017-11-03 21:05] LABS: LIPASE 23 U/L (1.0-51.0)
[2017-11-03] MEDS ORDERED: ZOFRAN ODT4 MG PO (22:21)
[2017-11-03] MEDS ORDERED: BENTYL10 MG PO (22:23)
[2017-11-03 22:32] VITALS: BP 90/54
== END 2017-11-03 22:32 | disposition home or self-care (01) ==
LOC: EME 19:19
DX: R10.13 Epigastric pain (principal); R11.2 Nausea with vomiting, unspecified; F32.9 Major depressive disorder, single episode, unspecified; Z88.5 Allergy status to narcotic agent; Z88.6 Allergy status to analgesic agent; Z88.1 Allergy status to other antibiotic agents
CPT/HCPCS: 76705; 80053; 81003; 83690; 84702; 85027; 87086; 99281; 99284

== ENCOUNTER 2017-11-05 10:51 | Emergency (ER) | payer OTHER ==
[~2017-11-05] VITALS: Ht 170.2 cm; Wt 84.6 kg
[~2017-11-05 10:51] MED LIST changes: +BENTYL10 MG PO
[2017-11-05 11:30] LABS: HEMATOCRIT 39.1 % (36.0-46.0); HEMOGLOBIN 12.9 G/DL (11.9-15.5); MCH 28.7 PG (29.0-34.0); MCV 87.1 FL (83-99); RBC DIS.WIDTH-CV 12.1 % (11.8-14.6); RBC DIS.WIDTH-SD 39.2 % (39-53); RED BLOOD COUNT 4.49 M/uL (3.80-5.20); WHITE BLOOD COUNT 6.5 K/uL (4.1-10.2)
[2017-11-05 11:39] LABS: ALBUMIN 4.3 g/dL (3.2-4.8); CHLORIDE 105 mEq/L (99-109); POTASSIUM 4.5 mEq/L (3.7-5.4); SODIUM 141 mEq/L (136-147)
[2017-11-05 11:41] LABS: GLUCOSE 96 mg/dL (70-99); TOTAL PROTEIN 7.3 g/dL (6.4-8.3)
[2017-11-05 11:45] LABS: ALKALINE PHOSPHATASE 70 IU/L (3-129); CREATININE 0.7 mg/dL (0.6-1.3); GFR ESTIMATE (CALCULATED) > 59 mL/min/
[2017-11-05 11:46] LABS: UREA NITROGEN (BUN) 11 mg/dL (9-23)
[2017-11-05 11:47] LABS: AST (GOT) 16 IU/L (2-34)
[2017-11-05 11:48] LABS: ALT (GPT) 14 IU/L (3-49); LIPASE 15 U/L (1.0-51.0)
[2017-11-05 11:54] LABS: QUANTITATIVE HCG < 4.0 MIU/ML
[2017-11-05 11:59] LABS: TOTAL BILIRUBIN 0.4 mg/dL (0.0-1.0)
[2017-11-05 12:22] LABS: PLAT.SUFFICIENCY ADEQUATE; PLATELET COUNT 204 K/uL (156-360)
[2017-11-05 14:09] LABS: SOURCE SWAB
[2017-11-05 14:20] LABS: APPEARANCE CLEAR ((CLEAR)); BILIRUBIN NEGATIVE; BLOOD NEGATIVE; COLOR YELLOW ((YELLOW)); GLUCOSE (STRIP) NEGATIVE; KETONES NEGATIVE; LEUKOCYTES TRACE; NITRITE NEGATIVE; PROTEIN (STRIP) NEGATIVE; UROBILINOGEN 0.2 MG/DL (0.2-1.0)
[2017-11-05 14:27] LABS: SPECIFIC GRAVITY > 1.060 (1.000-1.030)
[2017-11-05 14:30] LABS: BACTERIA NONE SEEN /HPF; EPITHELIAL CELLS RARE /HPF; MUCUS NONE SEEN /LPF; RED BLOOD CELLS 0-5 /HPF (0-5); UCUL ADDED? NO; WHITE BLOOD CELLS 0-5 /HPF (0-5)
[2017-11-05] MEDS ORDERED: ZOFRAN4 MG PO (15:56)
[2017-11-05 16:04] VITALS: BP 117/70
[2017-11-05 17:24] LABS: CANDIDA DNA PROBE NEGATIVE; GARDNERELLA DNA PROBE POSITIVE; TRICHOMONAS DNA PROBE NEGATIVE
== END 2017-11-05 16:05 | disposition home or self-care (01) ==
LOC: EME 10:51
PROVIDERS: Nurse Practitioner Family
DX: R10.31 Right lower quadrant pain (principal); R10.11 Right upper quadrant pain; R11.0 Nausea; F32.9 Major depressive disorder, single episode, unspecified; Z88.5 Allergy status to narcotic agent; Z88.6 Allergy status to analgesic agent; Z88.1 Allergy status to other antibiotic agents
CPT/HCPCS: 74177; 76856; 80053; 81003; 83690; 84702; 85027; 87210; 87480; 87491; 87510; 87591; 87660; 99281; 99285; J0696; J2405; J3010; J7030

== ENCOUNTER 2017-11-23 09:46 | Emergency (ER) | payer OTHER ==
[~2017-11-23] VITALS: Ht 170.2 cm; Wt 84.5 kg
[2017-11-23 11:18] LABS: HEMATOCRIT 36.2 % (36.0-46.0); MCH 28.7 PG (29.0-34.0); MCHC 33.1 G/DL (30.0-36.0); MCV 86.6 FL (83-99); RBC DIS.WIDTH-CV 12.4 % (11.8-14.6); RBC DIS.WIDTH-SD 39.2 % (39-53); RED BLOOD COUNT 4.18 M/uL (3.80-5.20)
[2017-11-23 11:30] LABS: CHLORIDE 108 mEq/L (99-109); POTASSIUM 4.5 mEq/L (3.7-5.4); SODIUM 138 mEq/L (136-147)
[2017-11-23 11:33] LABS: GLUCOSE 100 mg/dL (70-99); TOTAL PROTEIN 6.6 g/dL (6.4-8.3)
[2017-11-23 11:35] LABS: TOTAL BILIRUBIN 0.2 mg/dL (0.0-1.0)
[2017-11-23 11:36] LABS: APPEARANCE CLEAR ((CLEAR)); BILIRUBIN NEGATIVE; BLOOD SMALL; COLOR STRAW ((YELLOW)); GLUCOSE (STRIP) NEGATIVE; KETONES NEGATIVE; LEUKOCYTES NEGATIVE; NITRITE NEGATIVE; PROTEIN (STRIP) NEGATIVE; SPECIFIC GRAVITY 1.015 (1.000-1.030); UROBILINOGEN 0.2 MG/DL (0.2-1.0)
[2017-11-23 11:36] LABS: ALKALINE PHOSPHATASE 75 IU/L (3-129)
[2017-11-23 11:37] LABS: CREATININE 0.6 mg/dL (0.6-1.3); GFR ESTIMATE (CALCULATED) > 59 mL/min/
[2017-11-23 11:38] LABS: AST (GOT) 16 IU/L (2-34); UREA NITROGEN (BUN) 10 mg/dL (9-23)
[2017-11-23 11:39] LABS: ALT (GPT) 12 IU/L (3-49)
[2017-11-23 11:40] LABS: LIPASE 24 U/L (1.0-51.0)
[2017-11-23 11:43] LABS: BACTERIA NONE SEEN /HPF; EPITHELIAL CELLS RARE /HPF; MUCUS TRACE /LPF; WHITE BLOOD CELLS 0-5 /HPF (0-5)
[2017-11-23 11:46] LABS: QUANTITATIVE HCG < 4.0 MIU/ML
[2017-11-23 11:55] LABS: PLAT.SUFFICIENCY ADEQUATE; PLATELET COUNT 177 K/uL (156-360)
[2017-11-23] MEDS ORDERED: BENTYL20 MG PO (12:41)
[2017-11-23] MEDS ORDERED: ZOFRAN ODT4 MG PO (12:41)
[2017-11-23 12:52] VITALS: BP 110/74
== END 2017-11-23 12:52 | disposition home or self-care (01) ==
LOC: EME 09:46
PROVIDERS: Nurse Practitioner Family
DX: M54.5 Low back pain (principal); R11.2 Nausea with vomiting, unspecified; X50.9XXA Other and unspecified overexertion or strenuous movements or postures, initial encounter; Y92.512 Supermarket, store or market as the place of occurrence of the external cause; Y99.0 Civilian activity done for income or pay; F32.9 Major depressive disorder, single episode, unspecified; Z88.5 Allergy status to narcotic agent; Z88.6 Allergy status to analgesic agent
CPT/HCPCS: 71046; 72100; 80053; 81003; 83690; 84702; 85027; 99281; 99284

== ENCOUNTER 2017-11-27 17:15 | Emergency (ER) | payer OTHER ==
[~2017-11-27] VITALS: Ht 170.2 cm; Wt 83.5 kg
[2017-11-27] MEDS ORDERED: MOTRIN600 MG PO (22:01)
[2017-11-27 22:10] VITALS: BP 112/71
== END 2017-11-27 22:14 | disposition home or self-care (01) ==
LOC: EME 17:15
DX: S63.616A Unspecified sprain of right little finger, initial encounter (principal); Y93.89 Activity, other specified; G43.909 Migraine, unspecified, not intractable, without status migrainosus; F17.200 Nicotine dependence, unspecified, uncomplicated; F41.9 Anxiety disorder, unspecified; F32.9 Major depressive disorder, single episode, unspecified; Z88.5 Allergy status to narcotic agent; Z88.6 Allergy status to analgesic agent
CPT/HCPCS: 73130; 99281; 99284